=== PATIENT | female | born 1990 | race African-American/Black ===

== ENCOUNTER 2019-12-25 04:34 | Inpatient (IN) | payer OTHER ==
[2019-12-25] VITALS (35 sets, daily range): BP systolic 101–139; BP diastolic 53–72
[~2019-12-25] VITALS: Ht 162.6 cm; Wt 83.4 kg
[2019-12-25] MEDS ORDERED: FOLI1TAB11 PO (05:07)
[2019-12-25] MEDS ORDERED: COLA100C5 PO (05:07)
[2019-12-25] MEDS ORDERED: FERR325T3 PO (05:07)
[2019-12-25] MEDS ORDERED: PRENTAB9 PO (05:07)
[2019-12-25] MEDS ORDERED: LR 1,000 ML IV ONE (06:15)
[2019-12-25 06:26] LABS: HEMATOCRIT 34.2 % (36.0-47.0); HEMOGLOBIN 10.5 g/dl (12.0-15.5); MEAN CORPUSCULAR HEMOGLOBIN 23.5 pg (27.0-33.0); MEAN CORPUSCULAR HGB CONC 30.7 g/dl (32.0-36.5); MEAN CORPUSCULAR VOLUME 76.7 fl (80.0-96.0); PLATELET COUNT, AUTOMATED 135 10^3/uL (150-450); RED BLOOD COUNT 4.46 10^6/uL (4.00-5.40); WHITE BLOOD COUNT 5.1 10^3/uL (4.0-10.0)
--- NOTE | 2019-12-25 06:58 | HPEPDOC ---
Obstetrical History & Physical General Date of Admission Dec 25, 2019 at 05:56 History of Present Illness 29yo at 39+5wks presenting for worsening ctx's. She was noted by nursing staff to progress from 3-4cm to now 5-6/80/-2. Patient denies VB, LOF, or DFM. Chief Complaint: Contractions, term Information Provided By: Patient Age: 29 : 3 Term: 1 Pre-term: 0 Abortions: 1 Livin Care Care: Good Care Dating Final EDC: Dec 27, 2019 Final EDC for Daily Update: Dec 27, 2019 Final EDC by: 1st trimester (US) 1st Trimester Date: May 21, 2019 Weeks + Days: 8 (+4) EGA at Admission: 39 (+5) Antepartum Course Diagnos(e)s Bariatric surgery Anemia Height (inches): 64 Pre- weight (lbs.): 155 Admission Weight (lbs.): 183 Change in Weight (lbs.): 17 Past Medical History Past Obstetrical History : Past Obstetrical History: Multigravida Date of Delivery: Mar 28, 2009 Gestation: 40 Type of Delivery: Spontaneous Vaginal Del. ([id number]) Complications: No [employer] History: Spontaneous (02/2019) Past Medical History Medical History HSV - oral Anemia Surgical History: Appendectomy (1996), [place] teeth, Other (Gastric sleeve 2017) Family History Significant Family History: Hypertension (MGM), Vascular disease (CVA) Social History Marital Status: Family situation: Spouse/partner home Psychosocial History: No pertinent psych hx * Smoker: non-smoker Alcohol: Denies Drugs: denies Abuse Violence Screening Have you been hit/kicked/slapp: No Have you been sexually assault: No Imunizations Tdap status: current (11/01/2019) Influenza Status: current (07/13/2019) Allergies Coded Allergies: No Known Allergies (Unverified , 12/25/19) Medications Scheduled Docusate Sodium (Colace) 100 Mg Capsule, 100 MG PO DAILY Ferrous Sulfate (Ferrous Sulfate) 325 Mg Tablet.dr, 325 MG PO DAILY Folic Acid (Folic Acid) 1 Mg Tablet, 1 TAB PO DAILY No.137/Iron/Folic Acd ( Vitamin Tablet) 1 Each Tablet, 1 TAB PO DAILY Physical Examination Physical Examination GENERAL: Alert and oriented times three. HEENT: NC/AT, airway patent and self-maintained ABDOMEN: Gravid and non-tender to touch. FETUS: Is vertex (VTX) by sterile vaginal examination (SVE), fetus is vertex (VTX) by Tobi. CARDS: well-perfused RESP: no exaggerated respiratory effort appreciated. : NEFG, SVE 6/c/-2 by RN EXTREMITIES: No edema. Laboratory Data 24H LABS Laboratory Tests 2 12/25/19 06:00: Nucleated Red Blood Cells % (auto) 0.0 CBC/BMP Laboratory Tests 12/25/19 06:00 Pertinent Laboratoy Data Blood Type: B+ RBC Antibody Screen: Negative HIV: Negative Hepatitis B: Negative Rapid Plasma Reagin: Nonreactive Rubella: Immune Varicella: Immune Chlamydia/Gonorrhea: Negative Group B Streptococcus: Negative (11/29/2019) Quad Screen Test: Declined Cystic Fibrosis: Declined Glucose Tolerance Test: 95 Anatomy Ultrasound Ultrasound Date: Aug 10, 2019 Placenta Location: Posterior Placenta Previa: Yes (resolved on f/u scan on [id number]) Vaginal Examination Dilation: 6 cm Effacement: 80% Station: -2 Cervical Consistency: Soft Cervical Position: Anterior Presentation: Cephalic presentation (by TAUS) Assessment Heart Rate (FHR): 130 Variability: Moderate Accelerations: Present Decelerations: None Tocometer Contractions: Yes Frequency: regular, every 2-5 min. Multi-drug resistant Organism: No history of MDRO Assessment/Plan Assessment 29yo at 39+5wks presenting for worsening pain with ctx's and found to make spontaneous cervical change. Patient in active labor. GBS neg. EFW 3200g. Plan Admit and orient. [employer] and consent. Diet: clears as tolerated. Group B Streptococcus (GBS) negative. Labs and intravenous (IV) per unit protocol. Counseled on augmentation of labor if indicated Patient may have epidural for pain control as desired Lactated Ringers (LR): Bolus 1000 mL, then at 125 mL/hr. Anticipate normal spontaneous delivery (). C-S as appropriate. JESSICA BARROW DO Dec 25, 2019 06:58
[2019-12-25] MEDS: LR 1,000 ML IV SCH ×2 (07:15→11:00)
[2019-12-25] MEDS ORDERED: FENTANYL 2MCG/ML ROPIVACAINE 0.2% IN 0.9% NACL 100ML IVBAG As Ordered ONE (07:25)
[2019-12-25] MEDS ORDERED: OXYTOCIN 30 UNITS IN 0.9% NaCl 500ML IV BAG (J2590) As Ordered ONE (09:50)
[2019-12-25] MEDS ORDERED: ePHEDrine SULFATE 25 MG/5 ML(5MG/ML) SYRINGE IV PRN (10:45)
[2019-12-25] MEDS ORDERED: EPIDURAL/PCA KEYS XX PRN (10:45)
[2019-12-25] MEDS ORDERED: diphenhydrAMINE 50MG/ML VIAL (J1200) IV PRN (10:45)
[2019-12-25] MEDS ORDERED: FENTANYL/ROPIVACAINE/NACL BAG 100 ML EPIDURAL SCH (10:45)
[2019-12-25] MEDS ORDERED: NALOXONE INJ 0.4MG/1ML VIAL (J2310 PER 1MG) IV PRN (10:45)
[2019-12-25] MEDS ORDERED: LACTATED RINGER'S 1000 ML IV PRN (10:45)
[2019-12-25] MEDS ORDERED: ONDANSETRON 4MG/2ML VIAL IV PRN (10:45)
[2019-12-25] MEDS ORDERED: REFRIGERATOR IV KEYS XX PRN (10:45)
[2019-12-25] MEDS ORDERED: EPIDURAL COMMENT XX SCH (10:45)
[2019-12-25] MEDS ORDERED: OXYTOCIN DRIP 30 UNITS in IV 1 EA IV SCH (14:16)
--- NOTE | 2019-12-25 14:20 | DNPDOC ---
[facility] Delivery Note Delivery Note DATE OF DELIVERY: 12/25/2019 TIME OF : 1320 GENDER:, Male. APGARS: 9 and 9. WEIGHT:, 3530 grams or 7 pounds 13 ounces. LACERATIONS:. None ANESTHESIA: Epidural. COUNTS: 5 laparotomy sponges accounted for prior to after delivery. DELIVERY NOTE: On 12/25/19 at 1320, Mrs Ron ramsay 29yo G3, now P2 had a spontaneous vaginal delivery of viable male , Apgars 9 and 9 and weight was 3530 g or 7 lbs. 13 oz. Head was delivered occiput anterior (OA), followed by delivery of the shoulders and corpus. was handed to mom with a good cry. Cord was clamped times two and was cut by the father of baby under my direction. Placenta was then drained and delivered grossly intact. A premixed bag of 500 mL of normal saline with 30 units of Pitocin was then bolused along with uterine massage until the uterus was firm. On inspection,cervix, vagina, perineum was grossly intact and hemostatic. Mom and baby in recovery on stable condition. The couples decided to remain in son MARTHA Luu MD. Dec 25, 2019 14:20
[2019-12-25] MEDS ORDERED: ACETAMINOPHEN 500 MG TAB PO PRN (14:30)
[2019-12-25] MEDS ORDERED: IBUPROFEN 600MG TAB PO PRN (14:30)
[2019-12-25] MEDS ORDERED: METHYLERGONOVINE MALEATE 0.2 MG TAB PO PRN (14:30)
[2019-12-25] MEDS ORDERED: MOM 30ML SUSPENSION UDC PO PRN (14:30)
[2019-12-25] MEDS ORDERED: RHOGAM 300 MCG (1500 IU) INJ (J2790) IM SCH (14:30)
[2019-12-25] MEDS ORDERED: DIBUCAINE 1% OINTMENT 30GM TOP PRN (14:30)
[2019-12-25] MEDS ORDERED: IBUPROFEN 800 MG TAB PO PRN (14:30)
[2019-12-25] MEDS ORDERED: ACETAMINOPHEN TAB 650MG DOSE (2X325MG) PO PRN (14:30)
[2019-12-25] MEDS ORDERED: MEASLES,MUMPS,RUBELLA VACCINE INJ (MMR-II) (90707) SC SCH (14:30)
[2019-12-25] MEDS ORDERED: SLF 3 ML SYR IV PRN (15:30)
[2019-12-25] MEDS: DOCUSATE SODIUM 100 MG CAP PO SCH (20:17)
[2019-12-25] MEDS: SLF 3 ML SYR IV SCH (21:00)
[2019-12-26 06:00] VITALS: BP 105/59
[2019-12-26] MEDS: SLF 3 ML SYR IV SCH (06:36)
--- NOTE | 2019-12-26 07:30 | IPNPDOC ---
Progress Note Date of Service: Dec 26, 2019 Day#: 1 Progress Note SUBJECT: This morning, she is doing well without complaints. Ambulating, voiding and pain is well-controlled. Reports minimal lochia. +breast feeding OBJECTIVE: VSS and AF Alert and oriented times three. Abdomen: Fundus firm at U-2. Soft, NTTP. Ext: neg calf tenderness. ASSESSMENT: day #1 status post normal spontaneous vaginal delivery. Recovering in stable condition. PLAN: 1. Continue routine care 2. Discharge plans for tomorrow VS, I&O, 24H, Fishbone Vital Signs/I&O Vital Signs Date Time Temp Pulse Resp B/P (MAP) Pulse Ox O2 Delivery O2 Flow Rate FiO2 12/26/19 06:00 97.5 72 18 105/59 (74) 12/25/19 18:00 98 Room Air I&O- Last 24 Hours up to 6 AM 12/26/19 06:01 Intake Total 3140 ml Output Total 2775 ml Balance 365 ml Laboratory Data 24H LABS Laboratory Tests 2 12/25/19 11:42: Serology Scanned Report Hepatitis B Testing MARTHA LOCKHART MD. Dec 26, 2019 07:29
[2019-12-26] MEDS: DOCUSATE SODIUM 100 MG CAP PO SCH (08:04)
[2019-12-26] MEDS ORDERED: PRENATAL VITAMINS CHEWABLE TABLET PO SCH (09:00)
[2019-12-26 18:04] VITALS: BP_SYST 100; BP_SYST 108; BP_DIAS 61
--- NOTE | 2019-12-31 17:35 | IPN ---
DATE: 12/26/2019 HISTORY: This patient and requested a circumcision of their male . PLAN: After discussing risks and benefits of the circumcision, the medical and non-medical indications, the penile block and after care expressed understanding of penile block after care, signed the Consent Form, all questions were answered, 20 minute discussion, we await the clearance by the caser shoe parts. JOHNSON
== END 2019-12-26 19:05 | disposition home or self-care (01) | DRG 807 ==
LOC: M LDO 04:34 → M LDI 05:56 → M OBS 16:10
PROVIDERS: ADMIT Obstetrics & Gynecology; ATTEND Obstetrics & Gynecology
PROC: 10E0XZZ Delivery of Products of Conception, External Approach (ICD-10-PCS; principal; 2019-12-25)
DX: O99.844 Bariatric surgery status complicating childbirth (principal); Z37.0 Single live birth; Z3A.39 39 weeks gestation of pregnancy; O99.02 Anemia complicating childbirth; D64.9 Anemia, unspecified

== ENCOUNTER 2020-03-25 08:02 | Day surgery (SDC) | payer OTHER ==
[~2020-03-25] VITALS: Ht 162.6 cm; Wt 78.5 kg
[~2020-03-25 08:02] MED LIST: COLA100C5 PO; FERR325T3 PO; FOLI1TAB11 PO; LIDOCAINE 1% MDV 20ML VIAL SQ PRN; LR 1,000 ML IV ONE; PRENTAB9 PO
[2020-03-25 08:55] LABS: HEMATOCRIT 39.8 % (36.0-47.0); HEMOGLOBIN 12.2 g/dl (12.0-15.5); MEAN CORPUSCULAR HEMOGLOBIN 26.5 pg (27.0-33.0); MEAN CORPUSCULAR HGB CONC 30.7 g/dl (32.0-36.5); MEAN CORPUSCULAR VOLUME 86.5 fl (80.0-96.0); PLATELET COUNT, AUTOMATED 176 10^3/uL (150-450); WHITE BLOOD COUNT 3.5 10^3/uL (4.0-10.0)
[2020-03-25] MEDS ORDERED: fentaNYL 100 MCG/2 ML INJECTION (J3010) As Ordered ONE ×2 (09:17→10:47)
[2020-03-25] MEDS ORDERED: MIDAZOLAM INJ 2MG/2ML VIAL (J2250 PER 1MG) As Ordered ONE (09:17)
[2020-03-25 09:26] LABS: HCG, SERUM QUALITATIVE NEGATIVE (NEGATIVE)
[2020-03-25] MEDS ORDERED: propofoL 200 MG/20 ML VIAL As Ordered ONE (09:29)
[2020-03-25] MEDS ORDERED: ROCURONIUM BROMIDE 50 MG/5 ML VIAL As Ordered ONE (09:29)
[2020-03-25] MEDS ORDERED: BUPIVACAINE HCL 0.5% 30 ML VIAL As Ordered ONE (10:23)
[2020-03-25] MEDS ORDERED: METOCLOPRAMIDE INJ 10MG/2ML VIAL (J2765 PER 1) As Ordered ONE (10:41)
[2020-03-25] MEDS ORDERED: ONDANSETRON 4MG/2ML VIAL As Ordered ONE (10:42)
[2020-03-25] MEDS ORDERED: LIDOCAINE 2% 100MG/5ML SDV (FOR ANES.) As Ordered ONE (10:42)
[2020-03-25] MEDS ORDERED: SUGAMMADEX SODIUM 500 MG/5 ML VIAL (BRIDION) As Ordered ONE (10:42)
[2020-03-25] MEDS ORDERED: dexameTHASONE 4 MG/ML 1ML VIAL (J1100 PER 1MG) As Ordered ONE (10:43)
[2020-03-25] MEDS ORDERED: ACETAMINOPHEN 1000MG 100ML IV BTL (OFIRMEV) (J0131 PER 10MG) As Ordered ONE (10:48)
[2020-03-25] MEDS ORDERED: SILVER NITRATE APPLICATOR As Ordered ONE ×2 (11:30→11:32)
[2020-03-25] MEDS ORDERED: oxyCODONE 5MG TAB PO PRN (12:00)
[2020-03-25] MEDS ORDERED: KETOROLAC 30 MG/ML 1ML VIAL IV PRN (12:00)
[2020-03-25] MEDS ORDERED: PERCOCET 5MG/325MG TAB PO PRN (12:00)
[2020-03-25] MEDS ORDERED: fentaNYL 100 MCG/2 ML INJECTION (J3010) IV PRN (12:00)
[2020-03-25] MEDS ORDERED: LR 1,000 ML IV SCH (12:00)
[2020-03-25] MEDS ORDERED: ONDANSETRON 4MG/2ML VIAL IV PRN (12:00)
[2020-03-25] MEDS ORDERED: METOCLOPRAMIDE INJ 10MG/2ML VIAL (J2765 PER 1) IV PRN (12:00)
[2020-03-25] MEDS ORDERED: HYDROMORPHONE HCL 0.5 MG/ 0.5 ML SYRINGE (J1170 PER 1) IV PRN (12:00)
--- NOTE | 2020-03-25 12:40 | RO ---
OPERATIVE NOTE DATE OF OPERATION: 03/25/2020 PREOPERATIVE DIAGNOSIS: Satisfied parity. POSTOPERATIVE DIAGNOSIS: Satisfied parity. PROCEDURE: Laparoscopic bilateral salpingectomy. SURGEON: Pepe Huber DO MOOSE HUNTER: Dr. Garcia ANESTHESIA: General. IV FLUIDS: 800 mL LR. EBL: 3 mL. URINE OUTPUT: 250 mL. ANTIBIOTICS: None indicated. OPERATIVE FINDINGS: Normal appearing pelvis with normal fallopian tubes bilaterally, normal ovaries, normal uterus. COMPLICATIONS: None. DETAILED PROCEDURE DESCRIPTION: The risks, benefits, indications, and alternatives of the procedure were reviewed with the patient and informed consent was obtained. The patient was taken to the operating room and general anesthesia was obtained without difficulty. The patient was then placed in lithotomy position using Gel padded Yuriy stirrups. The patient's arms were gently tucked to the sides with padding. The patient was prepped and draped in usual sterile fashion. A surgical time-out was then performed and the patient's identity and the planned procedure were verified with the operative team. A Paz catheter was placed to drain the bladder. An [place] uterine manipulator was then inserted as a means to manipulate the uterus. Gloves were then exchanged and attention was turned to the patient's abdomen where 5 mm skin incision was made in the inferior aspect of the umbilicus after injection of Marcaine. A 5 mm trocar and sleeve were then carefully introduced into the peritoneal cavity under direct visualization at 90-degree angle tenting up the abdominal wall. Intraperitoneal placement was confirmed under direct visualization with entry pressure noted to be <5mmHg. A pneumoperitoneum was obtained with several liters of CO2 gas. Upon entry into the peritoneal cavity, structures immediately below the incision were inspected and found to be free of injury. Survey of the patient's abdomen and pelvis was notable for normal appearing liver, uterus, bilateral fallopian tubes and ovaries. The posterior and anterior cul-de-sac was noted to be normal as well. Two additional 5 mm trocars, one in the left lower quadrant and one in the right lower quadrant of the abdominal wall were then placed under direct visualization after Marcaine injections and skin incisions were made with the scalpel. Using the LigaSure electrocautery device, the left fallopian tube was dissected away from the mesosalpinx from the fimbriated end to the isthmic portion taking care to cauterize any vasculature within the mesosalpinx. The fallopian tube was then amputated at its connection to the uterine cornua and removed from the patient's abdomen. Attention was then turned to the patient's right fallopian tube which in similar fashion was removed using LigaSure electrocautery. The right fallopian tube was then removed from the patient's abdomen. All operative sites were inspected and found to be hemostatic. The gas was turned off and all CO2 was removed from the patient's abdomen. All ports were then removed under direct visualization and there was no bleeding seen from the trocar sites. The skin incisions were then closed with 4-0 Monocryl suture and covered with Dermabond. The uterine manipulator was then removed and the cervix was made hemostatic with sticks of silver nitrate. All instruments were then confirmed to be removed from the vagina. The patient's Paz catheter was removed. At the completion of the case, the sponge, instrument, and needle counts were correct x2. The patient tolerated the procedure well. She was cleansed, dried, taken out of lithotomy position, awakened from anesthesia, and taken to PACU in stable condition. JOHNSON
[2020-03-25 13:30] VITALS: BP 118/65
== END 2020-03-25 13:30 | disposition home or self-care (01) ==
LOC: M SDC 08:02
PROVIDERS: ATTEND Obstetrics & Gynecology
DX: Z30.2 Encounter for sterilization (principal); Z98.84 Bariatric surgery status; D64.9 Anemia, unspecified; F41.9 Anxiety disorder, unspecified; Z79.899 Other long term (current) drug therapy
CPT/HCPCS: 36415; 58661; 84703; 85027; 88302; J0131; J1100; J2250; J2405; J2765; J3010

== ENCOUNTER 2020-09-26 20:33 | Emergency (ER) | payer OTHER ==
[~2020-09-26] VITALS: Ht 162.6 cm; Wt 74.5 kg
[~2020-09-26 20:33] MED LIST changes: -LIDOCAINE 1% MDV 20ML VIAL SQ PRN; -LR 1,000 ML IV ONE
[2020-09-26 20:34] VITALS: BP 129/63
[2020-09-28] MEDS ORDERED: LIDO5DIS41 TOP (10:53)
[2020-09-28] MEDS ORDERED: IBUP80TA PO (10:53)
[2020-09-28] MEDS ORDERED: CYCL5TAB PO (10:53)
== END 2020-09-27 00:49 | disposition left against medical advice (07) ==
LOC: M ED 20:33
DX: Z53.21 Procedure and treatment not carried out due to patient leaving prior to being seen by health care provider (principal)

== ENCOUNTER 2020-09-28 07:38 | Emergency (ER) | payer OTHER ==
[~2020-09-28] VITALS: Ht 162.6 cm; Wt 74.1 kg
[2020-09-28] MEDS ORDERED: ACETAMINOPHEN 500 MG TAB PO ONE (08:40)
[2020-09-28] MEDS ORDERED: KETOROLAC 30 MG/ML 1ML VIAL IV ONE (08:40)
[2020-09-28] MEDS ORDERED: LIDOCAINE 5% (LIDODERM) PATCH TD ONE (08:40)
[2020-09-28] MEDS ORDERED: methylPREDNISolone 125MG 2ML VIAL IV ONE (08:40)
[2020-09-28] MEDS ORDERED: CYCL5TAB PO (10:53)
[2020-09-28] MEDS ORDERED: LIDO5DIS41 TOP (10:53)
[2020-09-28] MEDS ORDERED: IBUP80TA PO (10:53)
[2020-09-28 11:03] VITALS: BP 109/64
[2020-09-28] MEDS ORDERED: **NOTE PATIENT COMMENT** MISC XX SCH (21:00)
== END 2020-09-28 11:04 | disposition home or self-care (01) ==
LOC: M ED 07:38
DX: S39.012A Strain of muscle, fascia and tendon of lower back, initial encounter (principal); X50.0XXA Overexertion from strenuous movement or load, initial encounter; Y92.9 Unspecified place or not applicable; Y93.9 Activity, unspecified; Y99.9 Unspecified external cause status; F41.9 Anxiety disorder, unspecified
CPT/HCPCS: 84702; 99284; J1885; J2930